=== PATIENT | male | born 1970 ===

== ENCOUNTER 2021-01-17 17:27 | Observation (INO) | payer SELFPAY ==
[2021-01-17] MEDS ORDERED: ASPIRIN 81 MG TAB CHEW PO ONE ×2 (17:44)
--- NOTE | 2021-01-17 17:53 | Emergency Department Report ---
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 He describes the pain as a cramping sensation. He states that the pain radiated to his left arm into his left ear. He states he feels a tingling sensation in his left arm. He states at the time he was feeling some mild shortness of breath but that the shortness of breath resolved and he has no difficulty breathing at this time. He states that the pain comes and goes and feels like a cramping. He denies any nausea, vomiting, diarrhea, fever, cough, leg swelling, diaphoresis. He has a past medical history of hypertension and is supposed to be taking lisinopril. He states that he has not taken his lisinopril in approximately 2 years because he reports that it would give him a headache. He states that today he took 2 tablets of a old prescription he had. He states he went to a clinic today and was advised to report to the emergency room due to elevated blood pressure. He denies any allergies to medications. He is a non-smoker. He endorses occasional alcohol use. He denies any family cardiac history. he states he took 81 mg of aspirin today. - Related Data Allergies Allergy/AdvReac Type Severity Reaction Status Date / Time No Known Allergies Allergy Verified 01/17/21 17:57 Heart Score - HEART Score History: Moderately suspicious EKG: Non-specific Age: 45-65 Risk factors: 1-2 risk factors Troponin: < normal limit HEART Score: 4 - EKG Read Time Time EKG Completed: 17:36 EKG Read Time: 17:40 ED Review of Systems ROS: Stated complaint: CHEST PAIN Other details as noted in HPI Comment: All other systems reviewed and negative ED Past Medical Hx - Past Medical History Hx Hypertension: Yes (NONCOMPLIANT) Additional medical history: GASTRITIS ED Physical Exam - General Limitations: Language Barrier General appearance: alert, in no apparent distress - Head Head exam: Present: atraumatic, normocephalic - Eye Eye exam: Present: normal appearance - ENT ENT exam: Present: mucous membranes moist - Respiratory Respiratory exam: Present: normal lung sounds bilaterally. Absent: respiratory distress, wheezes, rales, rhonchi, stridor, chest wall tenderness, accessory muscle use, decreased breath sounds, prolonged expiratory - Cardiovascular Cardiovascular Exam: Present: regular rate, normal rhythm, normal heart sounds. Absent: systolic murmur, diastolic murmur, rubs, gallop - Neurological Exam Neurological exam: Present: alert, oriented X3 - Psychiatric Psychiatric exam: Present: normal affect, normal mood - Skin Skin exam: Present: warm, dry, intact ED Course Vital Signs 01/17/21 01/17/21 01/17/21 17:43 18:24 18:31 Temperature 97.7 F Pulse Rate 94 H 76 Respiratory 20 20 18 Rate Blood Pressure 174/114 Blood Pressure [Left] O2 Sat by Pulse 97 95 95 Oximetry 01/17/21 01/17/21 01/17/21 18:42 18:45 19:00 Temperature Pulse Rate 70 68 69 Respiratory 16 17 15 Rate Blood Pressure 145/94 153/101 Blood Pressure 143/93 [Left] O2 Sat by Pulse 97 97 98 Oximetry 01/17/21 01/17/21 01/17/21 19:15 19:30 19:45 Temperature Pulse Rate 67 68 64 Respiratory 18 18 14 Rate Blood Pressure 150/98 139/98 143/99 Blood Pressure [Left] O2 Sat by Pulse 97 96 97 Oximetry 01/17/21 01/17/21 01/17/21 20:00 20:03 20:08 Temperature 98.2 F Pulse Rate 64 Respiratory 15 14 Rate Blood Pressure 152/101 Blood Pressure [Left] O2 Sat by Pulse 98 97 Oximetry 01/17/21 01/17/21 01/17/21 20:15 20:30 20:45 Temperature Pulse Rate 67 73 82 Respiratory 16 15 10 L Rate Blood Pressure 147/104 152/103 171/119 Blood Pressure [Left] O2 Sat by Pulse 98 96 95 Oximetry 01/17/21 01/17/21 01/17/21 21:00 21:15 21:30 Temperature Pulse Rate 68 65 74 Respiratory 15 15 13 Rate Blood Pressure 159/105 154/104 163/112 Blood Pressure [Left] O2 Sat by Pulse 99 97 98 Oximetry 01/17/21 01/17/21 21:45 23:50 Temperature Pulse Rate 86 70 Respiratory 12 Rate Blood Pressure 152/110 141/93 Blood Pressure [Left] O2 Sat by Pulse 99 Oximetry - Consultations Consultation #1: 01/17/21 21:[address] Grace, hospitalist who will accept and resume care of patient, will admit to hospitalist service HENRY score - Henry Score Age > 65: (0) No Aspirin use within the Past 7 Days: (1) Yes 3 or more CAD Risk Factors: (0) No 2 or more Angina events in past 24 hrs: (1) Yes Known CAD with more than 50% Stenosis: (0) No Elevated Cardiac Markers: (0) No ST Deviation Greater than 0.5mm: (0) No HENRY Score: 2 ED Medical Decision Making - Lab Data Result diagrams: 01/17/21 18:01 01/17/21 18:01 Lab Results 01/17/21 01/17/21 01/17/21 Range/Units 18:01 18:01 18:01 WBC 10.4 (4.5-11.0) K/mm3 RBC 5.11 H (3.65-5.03) M/mm3 Hgb 16.4 H (11.8-15.2) gm/dl Hct 47.9 H (35.5-45.6) % MCV 94 (84-94) fl MCH 32 (28-32) pg MCHC 34 (32-34) % RDW 13.1 L (13.2-15.2) % Plt Count 237 (140-440) K/mm3 Lymph % (Auto) 7.9 L (13.4-35.0) % [place] % (Auto) 5.8 (0.0-7.3) % Eos % (Auto) 0.0 (0.0-4.3) % Baso % (Auto) 0.3 (0.0-1.8) % Lymph # (Auto) 0.8 L (1.2-5.4) K/mm3 [place] # (Auto) 0.6 (0.0-0.8) K/mm3 Eos # (Auto) 0.0 (0.0-0.4) K/mm3 Baso # (Auto) 0.0 (0.0-0.1) K/mm3 Seg Neutrophils % 86.0 H (40.0-70.0) % Seg Neutrophils # 8.9 H (1.8-7.7) K/mm3 Sodium 132 L (137-145) mmol/L Potassium 3.5 L (3.6-5.0) mmol/L Chloride 96.8 L (98-107) mmol/L Carbon Dioxide 24 (22-30) mmol/L Anion Gap 15 mmol/L BUN 13 (9-20) mg/dL Creatinine 0.8 (0.8-1.3) mg/dL Estimated GFR > 60 ml/min BUN/Creatinine Ratio 16 % Glucose 104 H (75-100) mg/dL Calcium 9.5 (8.4-10.2) mg/dL Total Bilirubin 1.10 (0.1-1.2) mg/dL AST 21 (5-40) units/L ALT 24 (7-56) units/L Alkaline Phosphatase 103 (35-129) units/L Troponin T < 0.010 (0.00-0.029) ng/mL NT-Pro-B Natriuret Pep 101.4 (0-900) pg/mL Total Protein 7.7 (6.3-8.2) g/dL Albumin 4.4 (3.9-5) g/dL Albumin/Globulin Ratio 1.3 % 01/17/ Range/Units 20:38 WBC (4.5-11.0) K/mm3 RBC (3.65-5.03) M/mm3 Hgb (11.8-15.2) gm/dl Hct (35.5-45.6) % MCV (84-94) fl MCH (28-32) pg MCHC (32-34) % RDW (13.2-15.2) % Plt Count (140-440) K/mm3 Lymph % (Auto) (13.4-35.0) % [place] % (Auto) (0.0-7.3) % Eos % (Auto) (0.0-4.3) % Baso % (Auto) (0.0-1.8) % Lymph # (Auto) (1.2-5.4) K/mm3 [place] # (Auto) (0.0-0.8) K/mm3 Eos # (Auto) (0.0-0.4) K/mm3 Baso # (Auto) (0.0-0.1) K/mm3 Seg Neutrophils % (40.0-70.0) % Seg Neutrophils # (1.8-7.7) K/mm3 Sodium (137-145) mmol/L Potassium (3.6-5.0) mmol/L Chloride (98-107) mmol/L Carbon Dioxide (22-30) mmol/L Anion Gap mmol/L BUN (9-20) mg/dL Creatinine (0.8-1.3) mg/dL Estimated GFR ml/min BUN/Creatinine Ratio % Glucose (75-100) mg/dL Calcium (8.4-10.2) mg/dL Total Bilirubin (0.1-1.2) mg/dL AST (5-40) units/L ALT (7-56) units/L Alkaline Phosphatase (35-129) units/L Troponin T < 0.010 (0.00-0.029) ng/mL NT-Pro-B Natriuret Pep (0-900) pg/mL Total Protein (6.3-8.2) g/dL Albumin (3.9-5) g/dL Albumin/Globulin Ratio % - EKG Data EKG shows normal: sinus rhythm, ST-T waves Rate: normal - EKG Data 01/17/21 21:14 LAFB LAD - Radiology Data Radiology results: report reviewed Ordering Physician: GABRIEL COURTNEY Date of Service: 01/17/21 Procedure(s): XR chest routine 2V Accession Number(s): [id number] cc: GABRIEL COURTNEY Fluoro Time In Minutes: CHEST 2 VIEWS INDICATION / CLINICAL INFORMATION: Chest Pain. FINDINGS: SUPPORT DEVICES: None. HEART / MEDIASTINUM: No significant abnormality. LUNGS / PLEURA: No significant pulmonary or pleural abnormality. No pneumothorax. ADDITIONAL FINDINGS: No significant additional findings. IMPRESSION: 1. No acute findings. 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 He describes the pain as a cramping sensation. He states that the pain radiated to his left arm into his left ear. He states he feels a tingling sensation in his left arm. He states at the time he was feeling some mild shortness of breath but that the shortness of breath resolved and he has no difficulty breathing at this time. He states that the pain comes and goes and feels like a cramping. He denies any nausea, vomiting, diarrhea, fever, cough, leg swelling, diaphoresis. He has a past medical history of hypertension and is supposed to be taking lisinopril. He states that he has not taken his lisinopril in approximately 2 years because he reports that it would give him a headache. He states that today he took 2 tablets of a old prescription he had. He states he went to a clinic today and was advised to report to the emergency room due to elevated blood pressure. He denies any allergies to medications. He is a non-smoker. He endorses occasional alcohol use. He denies any family cardiac history. he states he took 81 mg of aspirin today. Vitals with elevated blood pressure, otherwise stable. Labs are stable. Troponin is negative x2. EKG with left axis deviation and left anterior fascicular block. Chest x-ray 1. No acute findings. Heart score is 4, HENRY score is 2. Patient given aspirin but was continuing to have pain, offered pain medication but patient politely declined. Discussed case with Dr. Jesus Spain, ER attending who advised admission.Discussed case with Dr. Grace, [facility] talist who will accept and resume care of patient, will admit to hospitalist service. Discussed all results with patient and discussed admission and patient was agreeable with plan. Critical care attestation.: If time is entered above; I have spent that time in minutes in the direct care of this critically ill patient, excluding procedure time. ED Disposition Clinical Impression: Chest pain Qualifiers: Chest pain type: unspecified Qualified Code(s): R07.9 - Chest pain, unspecified HTN (hypertension) Qualifiers: Hypertension type: unspecified Qualified Code(s): I10 - Essential (primary) hypertension Disposition: SHORT TERM HOSPITAL Is pt being admited?: Yes Does the pt Need Aspirin: Yes Condition: Stable Time of Disposition: 21:59
[2021-01-17 18:11] LABS: Basophils % (Auto) 0.3 % (0.0-1.8); Hematocrit 47.9 % (35.5-45.6); Hemoglobin 16.4 gm/dl (11.8-15.2); Lymphocytes # (Auto) 0.8 K/mm3 (1.2-5.4); Lymphocytes % (Auto) 7.9 % (13.4-35.0); Mean Corpuscular HGB Conc 34 % (32-34); Mean Corpuscular Volume 94 fl (84-94); Monocytes # (Auto) 0.6 K/mm3 (0.0-0.8); Monocytes % (Auto) 5.8 % (0.0-7.3); Platelet Count 237 K/mm3 (140-440); Red Blood Count 5.11 M/mm3 (3.65-5.03); Red Cell Distribution Width 13.1 % (13.2-15.2)
--- NOTE | 2021-01-17 18:21 | XRay Report ---
CHEST 2 VIEWS INDICATION / CLINICAL INFORMATION: Chest Pain. FINDINGS: SUPPORT DEVICES: None. HEART / MEDIASTINUM: No significant abnormality. LUNGS / PLEURA: No significant pulmonary or pleural abnormality. No pneumothorax. ADDITIONAL FINDINGS: No significant additional findings. IMPRESSION: 1. No acute findings. Signer Name: Naveed Sams MD Signed: 01/17/2021 6:17 PM Workstation Name: [id number]
[2021-01-17 18:32] LABS: Alanine Aminotransferase 24 units/L (7-56); Albumin 4.4 g/dL (3.9-5); BUN/Creatinine Ratio 16; Blood Urea Nitrogen 13 mg/dL (9-20); Calcium 9.5 mg/dL (8.4-10.2); Hemolysis Index 8
[2021-01-17] MEDS ORDERED: traMADol 50 MG TAB PO PRN (22:29)
[2021-01-17] MEDS ORDERED: ACETAMINOPHEN 325 MG TAB PO PRN (22:29)
[2021-01-17] MEDS ORDERED: NITROGLYCERIN 0.4 MG TAB SUBL SL PRN (22:29)
[2021-01-17] MEDS ORDERED: MORPHINE 4 MG/1 ML INJ IV PRN (22:29)
[2021-01-17] MEDS ORDERED: SODIUM CHLORIDE 0.9% 1000 ML 1,000 ML IV SCH (22:30)
--- NOTE | 2021-01-17 22:36 | History and Physical Report ---
History of Present Illness Date of examination: 01/17/21 Date of admission: 01/17/21 Chief complaint: Chest pain History of present illness: 58 years old male with history of hypertension and gastritis was brought to the emergency room because of cramping type of chest pain 3/10 radiated to the left arm and into the his left ear since 11 9 AM this morning .patient feels a tingling sensation in his left arm. He states at the time he was feeling some mild shortness of breath but that the shortness of breath resolved and he has no difficulty breathing at this time. He states that the pain comes and goes and feels like a cramping. He denies any nausea, vomiting, diarrhea, fever, cough, leg swelling, diaphoresis. He has a past medical history of hypertension and is supposed to be taking lisinopril. He states that he has not taken his lisinopril in approximately 2 years because he reports that it would give him a headache. He states that today he took 2 tablets of a old prescription he had. He states he went to a clinic today and was advised to report to the emergency room due to elevated blood pressure. He is a non- smoker. He endorses occasional alcohol use. He denies any family cardiac history. he states he took 81 mg of aspirin today. In the emergency room initial cardiac enzyme is negative. Troponin is 0.010. We are going to admit the patient I put the patient on chest pain pathway. Med rec is not available. Advance discharge planning is initiated Past History Past Medical History: hypertension, other (Gastritis) Medications and Allergies Allergies Allergy/AdvReac Type Severity Reaction Status Date / Time No Known Allergies Allergy Verified 01/17/21 17:57 Review of Systems All systems: negative Cardiovascular: chest pain, other (Cramping sensation in the left arm) Exam - Constitutional Vitals: Temp Pulse Resp BP Pulse Ox 98.2 F 86 12 152/110 99 01/17/21 20:03 01/17/21 21:45 01/17/21 21:45 01/17/21 21:45 01/17/21 21:45 General appearance: Present: no acute distress, well-nourished - EENT Eyes: Present: PERRL ENT: hearing intact, clear oral mucosa - Neck Neck: Present: supple, normal ROM - Respiratory Respiratory effort: normal Respiratory: bilateral: diminished - Cardiovascular Heart Sounds: Present: S1 & S2. Absent: rub, click - Extremities Extremities: pulses symmetrical, No edema Peripheral Pulses: within normal limits - Abdominal General gastrointestinal: Present: soft, non-tender, non-distended, normal bowel sounds Male genitourinary: Present: normal - Integumentary Integumentary: Present: clear, warm, dry - Musculoskeletal Musculoskeletal: gait normal, strength equal bilaterally - Psychiatric Psychiatric: appropriate mood/affect, intact judgment & insight - Neurologic Neurologic: CNII-XII intact, moves all extremities HEART Score - HEART Score EKG: Non-specific Age: 45-65 Risk factors: 1-2 risk factors Troponin: Troponin T < 0.010 ng/mL (0.00-0.029) 01/17/21 20:38 Troponin: < normal limit Results - Labs CBC & Chem 7: 01/17/21 18:01 01/17/21 18:01 Labs: Laboratory Last Values WBC 10.4 K/mm3 (4.5-11.0) 01/17/21 18: RBC 5.11 M/mm3 (3.65-5.03) H 01/17/21 18:01 Hgb 16.4 gm/dl (11.8-15.2) H 01/17/21 18:01 Hct 47.9 % (35.5-45.6) H 01/17/21 18:01 MCV 94 fl (84-94) 01/17/21 18:01 MCH 32 pg (28-32) 01/17/21 18:01 MCHC 34 % (32-34) 01/17/21 18: RDW 13.1 % (13.2-15.2) L 01/17/21 18:01 Plt Count 237 K/mm3 (140-440) 01/17/21 18:01 Lymph % (Auto) 7.9 % (13.4-35.0) L 01/17/21 18: [place] % (Auto) 5.8 % (0.0-7.3) 01/17/21 18:01 Eos % (Auto) 0.0 % (0.0-4.3) 01/17/21 18: Baso % (Auto) 0.3 % (0.0-1.8) 01/17/21 18:01 Lymph # (Auto) 0.8 K/mm3 (1.2-5.4) L 01/17/21 18:01 [place] # (Auto) 0.6 K/mm3 (0.0-0.8) 01/17/21 18:01 Eos # (Auto) 0.0 K/mm3 (0.0-0.4) 01/17/21 18:01 Baso # (Auto) 0.0 K/mm3 (0.0-0.1) 01/17/21 18:01 Seg Neutrophils % 86.0 % (40.0-70.0) H 01/17/21 18:01 Seg Neutrophils # 8.9 K/mm3 (1.8-7.7) H 01/17/21 18:01 Sodium 132 mmol/L (137-145) L 01/17/21 18:01 Potassium 3.5 mmol/L (3.6-5.0) L 01/17/21 18:01 Chloride 96.8 mmol/L (98-107) L 01/17/21 18:01 Carbon Dioxide 24 mmol/L (22-30) 01/17/21 18:01 Anion Gap 15 mmol/L 01/17/21 18:01 BUN 13 mg/dL (9-20) 01/17/21 18:01 Creatinine 0.8 mg/dL (0.8-1.3) 01/17/21 18:01 Estimated GFR > 60 ml/min 01/17/21 18:01 BUN/Creatinine Ratio 16 % 01/17/21 18:01 Glucose 104 mg/dL (75-100) H 01/17/21 18:01 Calcium 9.5 mg/dL (8.4-10.2) 01/17/21 18:01 Total Bilirubin 1.10 mg/dL (0.1-1.2) 01/17/21 18:01 AST 21 units/L (5-40) 01/17/21 18:01 ALT 24 units/L (7-56) 01/17/21 18:01 Alkaline Phosphatase 103 units/L (35-129) 01/17/21 18:01 Troponin T < 0.010 ng/mL (0.00-0.029) 01/17/21 20:38 NT-Pro-B Natriuret Pep 101.4 pg/mL (0-900) 01/17/21 18:01 Total Protein 7.7 g/dL (6.3-8.2) 01/17/21 18:01 Albumin 4.4 g/dL (3.9-5) 01/17/21 18:01 Albumin/Globulin Ratio 1.3 % 01/17/21 18:01 - Imaging and Cardiology Chest x-ray: report reviewed Assessment and Plan VTE prophylaxis?: Chemical Plan of care discussed with patient/family: Yes - Patient Problems (1) Acute coronary syndrome Current Visit: Yes Status: Acute Plan to address problem: Admit the patient to the telemetry. Aspirin 81 mg p.o. daily. Lipitor 40 mg p.o. daily. Nitroglycerin as needed. We do the serial cardiac enzyme. We also do a nuclear stress test Lexiscan. If needed please consult cardiology in the morning. Heparin 5000 units subcu every 8 hours (2) HTN (hypertension) Current Visit: Yes Status: Acute Qualifiers: Hypertension type: unspecified Qualified Code(s): I10 - Essential (primary) hypertension Plan to address problem: Hydralazine 10 mg IV every 6 hours as needed. Lisinopril 5 mg p.o. daily. We will monitor the blood pressure closely (3) Gastritis Current Visit: Yes Status: Acute Plan to address problem: Protonix 40 mg p.o. daily. We will continue the home medication (4) DVT prophylaxis Current Visit: Yes Status: Acute Plan to address problem: Heparin 5000 units subcu every 8 hours for DVT prophylaxis. Protonix 40 mg p.o. daily for GI prophylaxis. Patient is a full code
[2021-01-17] MEDS ORDERED: LISINOPRIL 5 MG TAB PO ONE (22:39)
[2021-01-17] MEDS ORDERED: hydrALAZINE 20 MG/1 ML INJ IV PRN (22:39)
[2021-01-18 00:32] LABS: BUN/Creatinine Ratio 15; Blood Urea Nitrogen 12 mg/dL (9-20); Calcium 9.2 mg/dL (8.4-10.2); Hemolysis Index 8
[2021-01-18] MEDS ORDERED: REGADENOSON 0.4 MG/5 ML INJ IV ONE (06:47)
[2021-01-18] MEDS: HEPARIN 5,000 UNIT/1 ML VIAL SUB-Q SCH ×2 (07:03→13:57)
--- NOTE | 2021-01-18 08:50 | Electrocardiograph Report ---
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
[2021-01-18] MEDS ORDERED: ASPIRIN 81 MG TAB CHEW PO SCH (10:00)
[2021-01-18] MEDS ORDERED: PANTOPRAZOLE 40 MG TAB PO SCH (10:00)
--- NOTE | 2021-01-18 13:04 | Nuclear Medicine Report ---
APPROVED REPORT Exam: Nuclear Stress Test Indication: Chest pain Ht: 5 ft 9 in Wt: 195 lbs BSA: 2.04 m2 BMI: 28.79 Rhythm: NSR Stress Test Details HR Resting HR: 73 bpm Max HR Achieved: 158 bpm Max Heart Rate (APMHR): 170 bpm Target HR (85% APMHR): 144 bpm % of APMHR: 92 Recovery HR: 89 bpm HR response to stress: Normal HR response to stress BP Resting BP: 158/88 mmHg Max BP: 180/118 mmHg Recovery BP: 146/109 mmHg BP response to stress: Abnormal hypertensive response to stress. ECG Resting ECG: Sinus Rhythm Stress ECG: Sinus Tachycardia ST Change: None Arrhythmia: None Recovery ECG: Sinus Tachycardia back into Sinus Rhythm Recovery ST Change: None Recovery Arrhythmia: None Clinical Reason for Termination: Fatigue Stress Symptoms: None Exercise duration: 9 min 00 sec Exercise capacity: 10.3 METs Overall Exercise Capacity for Age: Good Stress ECG Conclusion Good exercise capacity, no chest pain with exercise, no ST changes of ischemia, no significant dysrhythmias. Myocardial perfusion images are pending for final test interpretation. NM EXAM: Myocardial Perfusion REST/STRESS Imaging Protocol: Rest Tc-99m/Stress Tc-99m 1 day Resting Data Rest SPECT myocardial perfusion imaging was performed in supine position 45 minutes following the intravenous injection of 10 mCi of Tc-99m Myoview. Time of rest injection: 0715 Exercise Stress At peak stress, the patient was injected intravenously with 28mCi of Time of stress injection: 1025 Gated Stress SPECT was performed 20 minutes after stress injection. The images were gated to evaluate regional wall motion and calculate left ventricular ejection fraction. Study Quality Study: excellent Lung Uptake: Normal Study Data TID = 1.05. Perfusion Wall Motion The rest and stress images show normal left ventricular wall motion. Nuclear Conclusion ECG Findings: negative for ischemia Clinical Findings: negative for ischemia Nuclear Findings: negative for ischemia Exercise Capacity: normal Left Ventricular Function: normal Risk Study: low Normal myocardial perfusion study, normal left ventricular systolic function with calculated ejection fraction 73%. Conclusion Good exercise capacity, no chest pain with exercise, no ST changes of ischemia, no significant dysrhythmias. Myocardial perfusion images are pending for final test interpretation.
[2021-01-18 13:15] VITALS: BP 145/98
--- NOTE | 2021-01-18 13:35 | Discharge Summary ---
Providers - Providers Date of Admission: 01/17/21 21:59 Date of discharge: 01/18/21 Attending physician: LEON MARTINEZ MD Primary care physician: STATION USHER Hospitalization Reason for admission: chest pain. Condition: Fair Hospital course: History of present illness: 58 years old male with history of hypertension and gastritis was brought to the emergency room because of cramping type of chest pain 3/10 radiated to the left arm and into the his left ear since 11 9 AM this morning .patient feels a tingling sensation in his left arm. He states at the time he was feeling some mild shortness of breath but that the shortness of breath resolved and he has no difficulty breathing at this time. He states that the pain comes and goes and feels like a cramping. He denies any nausea, vomiting, diarrhea, fever, cough, leg swelling, diaphoresis. He has a past medical history of hypertension and is supposed to be taking lisinopril. He states that he has not taken his lisinopril in approximately 2 years because he reports that it would give him a headache. He states that today he took 2 tablets of a old prescription he had. He states he went to a clinic today and was advised to report to the emergency room due to elevated blood pressure. He is a non- smoker. He endorses occasional alcohol use. He denies any family cardiac history. he states he took 81 mg of aspirin today. In the emergency room initial cardiac enzyme is negative. Troponin is 0.010. We are going to admit the patient I put the patient on chest pain pathway. Med rec is not available. Advance discharge planning is initiated Hospital Course: Admitted for workup via chest pain pathway. Workup with troponin, cxr, ekg negative for acute findings. patient only found to be mildly hypokalemic. Nuclear stress test was negative ischemia. Plan to d/c home today. Disposition: HOME / SELF CARE / HOMELESS Final Discharge Diagnosis (Prints w/discharge instructions): Chest pain Time spent for discharge: 25 - Discharge Diagnoses (1) Acute coronary syndrome Status: Acute (2) Chest pain Status: Acute Qualifiers: Chest pain type: unspecified Qualified Code(s): R07.9 - Chest pain, unspecified (3) Gastritis Status: Acute (4) HTN (hypertension) Status: Acute Qualifiers: Hypertension type: unspecified Qualified Code(s): I10 - Essential (primary) hypertension Core Measure Documentation - Palliative Care Palliative Care/ Comfort Measures: Not Applicable - Core Measures Any of the following diagnoses?: none Exam - Constitutional Vitals: Temp Pulse Resp BP Pulse Ox 98.2 F 89 16 145/98 97 01/17/21 20:03 01/18/21 13:14 01/18/21 13:14 01/18/21 13:14 01/18/21 13:14 General appearance: Present: no acute distress, well-nourished - EENT Eyes: Present: PERRL, EOM intact ENT: hearing intact, clear oral mucosa, dentition normal - Neck Neck: Present: normal ROM - Respiratory Respiratory effort: normal - Cardiovascular Rhythm: regular Heart Sounds: Present: S1 & S2 - Extremities Extremities: no ischemia, pulses intact, No edema Peripheral Pulses: within normal limits - Abdominal General gastrointestinal: Present: soft, non-tender, non-distended - Integumentary Integumentary: Present: clear, warm - Musculoskeletal Musculoskeletal: strength equal bilaterally - Psychiatric Psychiatric: appropriate mood/affect, intact judgment & insight, memory intact, cooperative Plan Activity: no restrictions Weight Bearing Status: Full Weight Bearing Diet: low fat, low cholesterol, low salt Follow up with: PRIMARY CARE, [Primary Care Provider] - 3-5 Days
== END 2021-01-18 15:00 | disposition home or self-care (01) ==
LOC: ED 17:27 → 4A 21:59
PROVIDERS: ADMIT Hospitalist; ATTEND Internal Medicine
DX: I24.9 Acute ischemic heart disease, unspecified (principal); R07.89 Other chest pain; I10 Essential (primary) hypertension; K29.70 Gastritis, unspecified, without bleeding
CPT/HCPCS: 36415; 71046; 78452; 80053; 83880; 84484; 85025; 93005; 93017; 96372; 99285; A9502; G0378; J1644; 80048